=== PATIENT | female | born 1995 | race Two or more races ===

== ENCOUNTER 2021-11-16 18:01 | Emergency (ER) | payer BC, OTHER ==
[~2021-11-16] VITALS: Ht 152.4 cm; Wt 68.1 kg
[2021-11-16 21:59] LABS: Urine Bacteria FEW /hpf (None Seen); Urine Blood 2+ /uL (Negative); Urine Mucus FEW (None Seen); Urine Specific Gravity 1.028 (1.001-1.035); Urine WBC 619 /hpf (0 - 5)
[2021-11-16 22:38] LABS: Basophils # (auto) 0.1 10 ^3/uL (0-0.2); Basophils % (auto) 0.4 % (0.0-2.0); Eosinophils # (auto) 0 10 ^3/uL (0-0.8); Eosinophils % (auto) 0.1 % (0.0-7.0); Hematocrit 43.9 % (36.0-46.0); Hemoglobin 14.6 g/dL (12.2-16.2); Lymphocytes # (auto) 1.7 10 ^3/uL (0.4-5.4); Lymphocytes % (auto) 9.5 % (10.0-50.0); Mean Corpuscular Hemoglobin 30.6 pg (28.0-32.0); Mean Corpuscular Hgb Conc. 33.3 g/dL (32.0-36.0); Mean Corpuscular Volume 91.9 fL (80.0-100.0); Monocytes # (auto) 0.7 10 ^3/uL (0-1.3); Monocytes % (auto) 3.6 % (0.0-12.0); Neutrophils # (auto) 15.5 10 ^3/uL (1.6-8.6); Neutrophils % (auto) 86.4 % (37.0-80.0); Nucleated Red Blood Cells % 0.1 %; Red Blood Cells 4.77 10^6/uL (4.0-5.20); White Blood Cell 17.9 10^3/uL (4.4-10.8)
[2021-11-16 22:54] LABS: Albumin 4.4 g/dL (3.4-5.0); BUN/Creatinine Ratio 16.7; Calcium 9.1 mg/dL (8.5-10.1); Potassium 4.3 mmol/L (3.5-5.1)
[2021-11-16 22:58] LABS: Bilirubin, Total 0.9 mg/dL (0.2-1.0); Total Protein 7.4 g/dL (6.4-8.2)
[2021-11-17] MEDS ORDERED: PERCOT PO (05:39)
[2021-11-17] MEDS ORDERED: LEVO500T31 PO (05:39)
[2021-11-17] MEDS ORDERED: ONDA-144 PO (05:39)
[2021-11-17] MEDS ORDERED: ONDANSETRON ODT 4 MG TAB PO ONE (05:45)
[2021-11-17] MEDS ORDERED: cefTRIAXone SOD 1,000 MG VL IM ONE (05:45)
[2021-11-17] MEDS ORDERED: OXYCODONE W/ ACETAMINOPHEN 5/325MG TABLET PO ONE (05:45)
[2021-11-17 06:54] VITALS: BP 109/59
== END 2021-11-17 06:56 | disposition home or self-care (01) ==
LOC: ER 18:05
DX: N39.0 Urinary tract infection, site not specified (principal); N20.0 Calculus of kidney
CPT/HCPCS: 36415; 74176; 80053; 81001; 81025; 85025; 96372; 99284; J0696; Q0162

== ENCOUNTER 2023-12-17 13:48 | Emergency (ER) | payer BC ==
[~2023-12-17] VITALS: Ht 152.4 cm; Wt 70.0 kg
[2023-12-17 13:48] VITALS: BP 137/71; PULSE 99; RESP 16; O2SAT 96
[~2023-12-17 13:48] MED LIST: LEVO500T31 PO; ONDA-144 PO; PERCOT PO
[2023-12-17] MEDS ORDERED: BACIOIN15 TOP (15:49)
[2023-12-17] MEDS ORDERED: IBUP1TAB5 PO (15:49)
== END 2023-12-17 16:04 | disposition home or self-care (01) ==
LOC: ER 13:52
DX: S01.81XA Laceration without foreign body of other part of head, initial encounter (principal); Z79.899 Other long term (current) drug therapy; W01.0XXA Fall on same level from slipping, tripping and stumbling without subsequent striking against object, initial encounter; Y93.89 Activity, other specified; Y92.89 Other specified places as the place of occurrence of the external cause; Y99.8 Other external cause status
CPT/HCPCS: 12011

== ENCOUNTER 2023-12-25 20:12 | Emergency (ER) | payer BC ==
[~2023-12-25] VITALS: Ht 152.4 cm; Wt 70.6 kg
[~2023-12-25 20:12] MED LIST changes: +BACIOIN15 TOP; +IBUP1TAB5 PO
[2023-12-25 22:48] VITALS: BP 122/68; TEMP 98.3
[2023-12-25 23:02] VITALS: PULSE 89; RESP 16; O2SAT 98
== END 2023-12-25 23:09 | disposition home or self-care (01) ==
LOC: ER 20:12
DX: S01.81XD Laceration without foreign body of other part of head, subsequent encounter (principal); Z79.899 Other long term (current) drug therapy; X58.XXXD Exposure to other specified factors, subsequent encounter